=== PATIENT | female | born 1955 | race Caucasian/White ===

== ENCOUNTER 2018-03-17 20:16 | Outpatient (CLI) | payer MEDICAID | END 2018-03-17 20:17 | disposition critical access hospital (66) | LOC: EMS 20:16 | PROVIDERS: ATTEND Surgery | DX: R07.9 Chest pain, unspecified (principal); R10.9 Unspecified abdominal pain; R11.2 Nausea with vomiting, unspecified; R19.7 Diarrhea, unspecified | CPT/HCPCS: A0425; A0429; A0999 ==

== ENCOUNTER 2018-03-17 20:36 | Observation (INO) | payer MEDICAID ==
[2018-03-17] MEDS ORDERED: ONDANSETRON 4 MG/2 ML VIAL IVP STA (20:45)
[2018-03-17] MEDS ORDERED: SODIUM CHLORIDE 0.9% 1,000 ML IV ONE (20:45)
[2018-03-17 20:58] LABS: BASOPHILS % (AUTO) 0.4 %; EOSINOPHILS # (AUTO) 0.1 10^3/uL (0.0-0.7); EOSINOPHILS % (AUTO) 0.7 %; HGB - HEMOGLOBIN 13.7 g/dL (12.0-16.0); LYMPHOCYTES # (AUTO) 2.2 10^3/uL (1.5-3.5); LYMPHOCYTES % (AUTO) 26.5 %; MEAN CORPUSCULAR HEMOGLOBIN 31.6 pg (27.0-31.0); MEAN CORPUSCULAR HGB CONC 33.7 g/dL (32.0-36.0); MEAN CORPUSCULAR VOLUME 93.9 fL (81.0-99.0); MEAN PLATELET VOLUME 8.4 fL (7.9-10.8); MONOCYTES # (AUTO) 0.5 10^3/uL (0.0-1.0); NEUTROPHILS # (AUTO) 5.6 10^3/uL (1.5-6.6); NEUTROPHILS % (AUTO) 66.4 %; PLT - PLATELET COUNT 300 10^3/uL (130-450); RED BLOOD COUNT 4.33 10^6/uL (4.20-5.40); RED CELL DISTRIBUTION WIDTH 14.1 % (12.0-15.0); WHITE BLOOD COUNT 8.4 x10^3/uL (4.8-10.8)
[2018-03-17] MEDS ORDERED: LORazepam 2 MG/ML VIAL IVP STA (20:59)
[2018-03-17] MEDS ORDERED: FAMOTIDINE 20 MG in SODIUM CHLORIDE 0.9% 50 ML IV STA (21:09)
[2018-03-17 21:11] LABS: ALBUMIN 4.2 g/dL (3.2-5.5); ALBUMIN/GLOBULIN RATIO 1.3 (1.0-2.2); BILIRUBIN,TOTAL 1.1 mg/dL (0.2-1.0); CALCIUM 9.2 mg/dL (8.5-10.3); TOTAL PROTEIN 7.4 g/dL (6.7-8.2)
--- NOTE | 2018-03-17 21:12 | ED Physician Documentation ---
History of Present Illness - Stated complaint Stated Complaint: N/V/D - Chief complaint Chief Complaint: Abd Pain - History obtained from History obtained from: Patient - Additonal information Additional information: 62-year-old female presents the emergency department with generalized epigastric pain which is associated with multiple episodes of nausea and vomiting and one episode of loose stools. The patient's had multiple bouts of vomiting and now reports a burning that radiates up into her chest. The patient denies dyspnea on exertion, shortness of breath or recent URI symptoms. Symptoms are described as moderate. No other associated symptoms. No relieving factors. Review of Systems Constitutional: reports: Fatigue. denies: Fever, Chills Eyes: denies: Discharge Ears: denies: Ear pain Nose: denies: Congestion Throat: denies: Sore throat Cardiac: reports: Chest pain / pressure. 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 - Present Medications Home Medications: Ambulatory Orders Medication Instructions Recorded Confirmed diazePAM [Valium] 5 - 10 mg PO PRN 09/08/13 07/02/15 - Allergies Allergies/Adverse Reactions: Allergies Allergy/AdvReac Type Severity Reaction Status Date / Time morphine Allergy Intermediate Unknown Verified 07/02/15 13:17 - Social History Does the pt smoke?: No Smoking Status: Never smoker - POLST Patient has POLST: No PD ED PE NORMAL - General General: Alert and oriented X 3, Well developed/nourished - HEENT HEENT: Atraumatic, PERRL, EOMI, Ears normal, Moist mucous membranes - Neck Neck: Supple, no meningeal sign - Cardiac Cardiac: RRR, Strong equal pulses - Respiratory Respiratory: No respiratory distress, Clear bilaterally - Abdomen Abdomen: Soft, Non distended. No: Non tender (The patient has tenderness in the epigastrium, there is no Magallon sign, no rebound or peritoneal signs) - Derm Derm: Normal color - Extremities Extremities: No deformity, No edema - Neuro Neuro: Alert and oriented X 3, Normal speech - Psych Psych: Normal mood PD ED PE EXPANDED - General General: Anxious Results - Vitals Vitals: Vital Signs - 24 hr 03/17/18 03/17/18 03/17/18 20:40 21:28 21:35 Temperature 36.5 C Heart Rate 62 44 L Respiratory 22 16 Rate Blood Pressure 128/44 L 125/77 O2 Saturation 100 100 03/17/18 03/17/18 22:48 23:24 Temperature Heart Rate 48 L 63 Respiratory 18 18 Rate Blood Pressure 122/61 O2 Saturation 100 100 Oxygen O2 Source Room air - EKG (time done) 21: 04 Rate: Rate (enter#) Rhythm: NSR Intervals: Normal MA, QRS normal Ischemia: Non specific changes Other comments: Other comments (Sinus rhythm with nonspecific changes, there is no old EKG compared to) Compare to prior EKG: Unchanged from prior EKG 01:08 Rate: Rate (enter#) Rhythm: NSR Intervals: Normal MA, QRS normal Ischemia: Non specific changes Other comments: Other comments (Normal sinus rhythm, no acute ischemic changes) - Labs Labs: Laboratory Tests 03/17/18 03/17/18 03/17/18 20:52 20:52 20:52 WBC 8.4 RBC 4.33 Hgb 13.7 Hct 40.6 MCV 93.9 MCH 31.6 H MCHC 33.7 RDW 14.1 Plt Count 300 MPV 8.4 Neut # (Auto) 5.6 Lymph # (Auto) 2.2 [place] # (Auto) 0.5 Eos # (Auto) 0.1 Baso # (Auto) 0.0 Absolute Nucleated RBC 0.01 Nucleated RBC % 0.1 Sodium 135 Potassium 3.1 L Chloride 99 L Carbon Dioxide 16 L Anion Gap 20.0 H BUN 13 Creatinine 1.0 Estimated GFR (MDRD) 56 L Glucose 183 H Calcium 9.2 Magnesium 2.0 Total Bilirubin 1.1 H AST 39 ALT 16 Alkaline Phosphatase 85 Troponin I 0.06 Total Protein 7.4 Albumin 4.2 Globulin 3.2 Albumin/Globulin Ratio 1.3 Lipase 140 H 03/18/18 03/18/18 00:00 00:00 WBC RBC Hgb Hct MCV MCH MCHC RDW Plt Count MPV Neut # (Auto) Lymph # (Auto) [place] # (Auto) Eos # (Auto) Baso # (Auto) Absolute Nucleated RBC Nucleated RBC % Sodium 136 Potassium 3.4 L Chloride 104 Carbon Dioxide 20 L Anion Gap 12.0 BUN 12 Creatinine 0.8 Estimated GFR (MDRD) 72 L Glucose 143 H Calcium 8.4 L Magnesium Total Bilirubin AST ALT Alkaline Phosphatase Troponin I 0.11 Total Protein Albumin Globulin Albumin/Globulin Ratio Lipase 70 H - Rads (name of study) Chest Xray Radiology: Final report received (IMPRESSION: No acute intrathoracic plain film abnormality.) CT abdomen/pelvis Radiology: Final report received (IMPRESSION: 1. No acute inflammatory or obstructive process seen in the abdomen or pelvis. 2. Indeterminate scattered hepatic hypodense nodules measuring up to 2 cm on the left. Additional nearly 2 cm left adrenal nodule is also indeterminate. In the absence of known malignancy , favor benign nodules in both glands. MRI abdomen without and with contrast follow-up suggested to confirm benignity if they cannot be proven stable from older images) PD MEDICAL DECISION MAKING - ED course ED course: The patient has had ongoing symptoms, the patient's symptoms seem to be more consistent with a gastric etiology but on a repeat troponin the patient's enzyme level was slightly elevated, no acute EKG changes. The patient will require admission to the hospital for a full chest pain rule out. The findings and plan were discussed with the hospitalist Dr. Barton Who accepts the patient onto her service. The findings and plan were discussed the patient who understands and agrees to the plan - Sepsis Event Vital Signs: Vital Signs - 24 hr 03/17/18 03/17/18 03/17/18 20:40 21:28 21:35 Temperature 36.5 C Heart Rate 62 44 L Respiratory 22 16 Rate Blood Pressure 128/44 L 125/77 O2 Saturation 100 100 03/17/18 03/17/18 22:48 23:24 Temperature Heart Rate 48 L 63 Respiratory 18 18 Rate Blood Pressure 122/61 O2 Saturation 100 100 Oxygen O2 Source Room air Departure - Departure Disposition: ED Place in Observation Clinical Impression: Epigastric pain, Abnormal CT of the abdomen Chest pain Qualifiers: Chest pain type: unspecified Qualified Code(s): R07.9 - Chest pain, unspecified Vomiting Qualifiers: Vomiting type: unspecified Vomiting Intractability: non-intractable Nausea presence: with nausea Qualified Code(s): R11.2 - Nausea with vomiting, unspecified Condition: Good Discharge Date/Time: 03/18/18 02:07
[2018-03-17] MEDS ORDERED: POTASSIUM CHLORIDE 20 MEQ TABLET PO STA (21:33)
[2018-03-17] MEDS ORDERED: diphenhydrAMINE INJ 50 MG/ML VIAL IVP STA (22:33)
[2018-03-17] MEDS ORDERED: PROMETHAZINE INJ 25 MG in SODIUM CHLORIDE 0.9% 50 ML IV STA (22:33)
--- NOTE | 2018-03-17 22:55 | XRAY Report ---
Procedure Date: 03/17/2018 Accession Number: [id number] / [id number] Procedure: XR - Chest 2 View X-Ray CPT Code: 37246 FULL RESULT: EXAM: CHEST RADIOGRAPHY EXAM DATE: 03/17/2018 10:26 PM. CLINICAL HISTORY: Chest pain COMPARISON: None. TECHNIQUE: 2 views. FINDINGS: Lungs/Pleura: No focal opacities evident. No pleural effusion. No pneumothorax. Lungs are well expanded. Mediastinum: Heart and mediastinal contours are unremarkable. Other: None. IMPRESSION: No acute intrathoracic plain film abnormality. RADIA
[2018-03-18 00:18] LABS: CALCIUM 8.4 mg/dL (8.5-10.3); CREATININE 0.8 mg/dL (0.4-1.0)
[2018-03-18] MEDS ORDERED: ASPIRIN CHEW 81 MG TABLET PO STA (01:00)
[2018-03-18] MEDS ORDERED: fentaNYL 100 MCG/2 ML VIAL IVP STA (01:03)
[2018-03-18] MEDS ORDERED: PROCHLORPERAZINE 10 MG/2 ML VIAL IVP PRN (01:19)
[2018-03-18] MEDS ORDERED: oxyCODONE 5 MG TABLET PO PRN (01:19)
[2018-03-18] MEDS ORDERED: ACETAMINOPHEN 325 MG TABLET PO PRN (01:19)
[2018-03-18] MEDS ORDERED: ONDANSETRON ODT 4 MG TABLET TL PRN (01:19)
[2018-03-18] MEDS ORDERED: LORazepam 2 MG/ML VIAL IVP PRN (01:23)
[2018-03-18] MEDS ORDERED: IOPAMIDOL-300 100 ML VIAL ONE (01:27)
[2018-03-18 01:44] LABS: MUDS CUTOFF CONCENTRATIONS CUTOFF CONC BELOW:
--- NOTE | 2018-03-18 01:47 | HISTORY & PHYSICAL EXAMINATION ---
Chief Complaint - Chief Complaint Chief Complaint: nausea, epigastric pain History of Present Illness - Admitted From Admitted From:: ER/Home via EMS - History Obtained From Records Reviewed: [facility] History obtained from: Patient, ER MD and her friend Ms. Saavedra (most of it from Ms. Saavedra). Exam Limitations: patient's affect - History of Present Illness HPI Comment/Other: She presents w a complaint of nausea and vomitting today associated w epigastric pain. Sometimes radiates into her back or into her central chest. Sometimes sweaty w it, sometimes not. Pain is burning and comes a goes. When it lasts, it last for a few minutes. NO radiation to shoulder, no palpitations. No sob. She has no prior cardiac hx and denies angina, chf, arrhythmia. She denies orthopnea, pedal edema. She has no cardiac risk factors: no tobacco abuse, no HTN, no DM, no HPL. She did have an episode of diarrhea with her nausea. Liquid , brown, no blood. Maybe some abd pain she is not sure. Every time she tries to get up she gets dizzy but denies MARTIN, blurred vision, focal deficit, dysesthesia. She is a poor historian. 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 Martin has some type of cognitive dysfunction. Everyone in the neighborhood will say "that's our crazy Maria Ines." She has been on the autism spectrum all of her life. Uzma Saavedra is her neighbor and friend. They have known each other since Ms. Martin was 9 years old. What we are observing in the ER with her erratic conversation with off center responses is par for the course for her. In the ER she was hyperventilating but calmed with meds. She had a nml exam except for affect. AG, hypokalemia, and elevated lipase were noted. She received IVF and labs were better. But her initial troponin of <0.06 went to 0.1 on the second check. ER MD is wishing placment for observation for the epigastric pain to make sure there is no ischemia and she is getting a CT of the abd as I write this note. 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 ) Musculoskeletal: reports: Osteoarthritis Derm: reports: None MRSA Hx?: No - Past Surgical History /HOSE MAKER: reports: Other - Family & Social History Family History Comment/Other: Her mom >25 years ago according to Ms. Saavedra but the patient tells me mom is alive and she's just not in contact w her. Dad is unknown. 1 sister is alive in [place] and healthy as far as Ms. Saavedra knows. 1 half brother 3 years ago of unkown causes. Her 4 children all have different fathers and they are not in her life. Living arrangement: At home Living Situation: Alone Social History Notes: She smoked a few cigarettes in her youth but was never a regular tobacco smoker. She denies hx of alcohol abuse and Ms. Saavedra confirms that. She does live in her own home and pays her bills, takes care of her own personal needs. She knows how to drive but doesn't have a car. Never . 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 - Substance History Use: Uses substance without health or social issues: NONE Abuse: Recurrent use of substance despite neg consequences: NONE Dependence: Experiences withdrawal or developed tolerances: NONE - POLST Patient has POLST: No POLST Status: Full Code Meds/Allgy - Home Medications Home Medications: Ambulatory Orders Medication Instructions Recorded Confirmed diazePAM [Valium] 5 - 10 mg PO PRN 09/08/13 07/02/15 - Allergies Allergies/Adverse Reactions: Allergies Allergy/AdvReac Type Severity Reaction Status Date / Time morphine Allergy Intermediate Unknown Verified 07/02/15 13:17 Review of Systems - Constitutional Constitutional: denies: Fatigue, Fever, Chills, Malaise - Eyes Eyes: denies: Pain, Irritation, Amaurosis, Field loss - Ears, Nose & Throat Ears, Nose & Throat: denies: Ear pain, Hearing loss, Hearing aids, Nasal obstruction, Nasal congestion, Postnasal drainage, Sore throat - Cardiovascular Cariovascular: reports: Chest pain, Lightheadedness. denies: Irregular heart rate, Palpitations, Edema, Syncope, Exertional dyspnea, Decr. exercise tolerance - Respiratory Respiratory: denies: Cough, Sputum production, Wheezing, Snoring, Orthopnea, SOB at rest - Gastrointestinal Gastrointestinal: reports: Abdominal pain, Diarrhea, Nausea, Vomiting. denies: Abdominal distention, Constipation, Change in bowel habits, Rectal bleeding, Black stools, Bloody stools, Bile emesis, Dipak blood emesis - Genitourinary Genitourinary: denies: Dysuria, Frequency, Urgency, Hematuria - Musculoskeletal Musculoskeletal: denies: Muscle pain, Back pain, Muscle aches, Stiffness, Gout, Joint pain - Integumentary Integumentary: denies: Rash, Pruritis, Lesions - Neurological Neurological: reports: Headache, Dizziness, Pre-existing deficit. denies: General weakness, Focal weakness, Numbness, Memory problems, Abnormal gait, Seizures, Incoordination, Slurred speech - Psychiatric Psychiatric: reports: Depression, Anxiety. denies: Suicidal, Delusions, Hallucinations - Endocrine Endocrine: denies: Polyuria, Polydypsia, Polyphagia - Hematologic/Lymphatic Hematologic/Lymphatic: denies: Anemia, Bruising, Petechiae - All Other Systems All Other Systems: reports: Other (This ROS was very difficult to obtain. She is erractic. Alternates between being lucid, answering questions, to curling onto her side, closing her eyes , and taking over 45 seconds to answer a simple question because she's thinking. Sometimes the answers are nonsensical. Ms. Saavedra says that is Ms. Martin's baseline.) Exam - Vital Signs Reviewed Vital Signs: Yes Vital Signs: Vital Signs x48h Temp Pulse Resp BP Pulse Ox 03/18/18 01:20 59 L 16 132/70 H 97 03/17/18 23:24 63 18 100 03/17/18 22:48 48 L 18 122/61 100 03/17/18 21:35 125/77 03/17/18 21:28 44 L 16 100 03/17/18 20:40 36.5 C 62 22 128/44 L 100 - Physical Exam General Appearance: positive: No acute distress, Other (tall, lanky, elderly white female who looks older than stated age.) Eyes Bilateral: positive: PERRL, EOMI ENT: positive: Dry mucous membranes Neck: positive: No JVD. negative: Stiff neck, Carotid bruit Respiratory: positive: Chest non-tender. negative: Wheezes, Rales, Rhonchi Cardiovascular: positive: Regular rate & rhythm, Decreased pulse(s). negative: Systolic murmur, Gallop/S4, Friction rub Peripheral Pulses: positive: 1+ Abdomen: positive: Tenderness (in the epigastrium). negative: No organomegaly, Nml bowel sounds, No distention, Guarding, Rebound Skin: negative: Warm, Dry Extremities: positive: Non-tender, Full ROM. negative: Pedal edema Neurologic/Psychiatric: positive: Oriented x3, CN's nml (2-12), Motor nml. negative: Mood/affect nml, Weakness, Facial droop, Slurred/abnml speech Conclusion/Plan - Problem List (1) Epigastric pain Conclusion/Plan: I think she describes sudden in onset, but no relation to food. (+) emesis and ( +) nausea with some elements of chest pain. Plan: place in OBV serial cardiac enzymes Stress test tomorrow if nuc med is available bc there is an elevated amylase and element of abd pain, will fu on CT ordered in ER. (2) Labile personality Conclusion/Plan: with unknown personality disorder? Ms Saavedra states the Ms. Martin is seen at [facility] regularly. Will see if they will speak to us in am to give use her DSM diagnosis. I have ordered a toxicology screen to make sure that the labile change is not due to medication. Will also call Dr. Ortega's office in the am, but she states "I hate that man" but can't tell me why or when the last time she was seen. (3) High anion gap metabolic acidosis Conclusion/Plan: seen on initial BMP when she was hyperventilating. Resolved after ativan and IVF. Will check tox screen and BMP in am. (4) Hypokalemia Conclusion/Plan: from emesis? Plan is to supplement IV for the evening . - Lab Results Fish Bones: 03/17/18 20:52 03/18/18 00:00 - EKG Results EKG Interpreted Independently: No EKG Comparison: Other (tele in ER demonstrates sinus, sinus arrhythmia, bradycardia to 40's .) Core Measures - Anticipated LOS I expect patient to be DC'd or transferred within 96 hours.: Yes - DVT/VTE - Prophylaxis VTE/DVT Device ordered at admit?: Yes
[2018-03-18 01:52] LABS: BILIRUBIN,URINE NEGATIVE (NEGATIVE); GLUCOSE, URINE (UA) NEGATIVE (NEGATIVE); KETONES,URINE (UA) >=80 mg/dL (NEGATIVE); LEUKOCYTE ESTERASE, URINE NEGATIVE (NEGATIVE); NITRITE,URINE NEGATIVE (NEGATIVE); OCCULT BLOOD,URINE NEGATIVE (NEGATIVE); PH,URINE 6.5 PH (5.0-7.5); PROTEIN,URINE NEGATIVE (NEGATIVE); UROBILINOGEN,URINE 0.2 (NORMAL) E.U./dL (NORMAL)
[2018-03-18] MEDS ORDERED: IOPAMIDOL-300 100 ML VIAL IVP ONE (01:55)
[2018-03-18 02:03] LABS: AMPHETAMINE SCREEN,URINE NEGATIVE (NEGATIVE); BENZODIAZEPINES SCREEN, URINE POSITIVE (NEGATIVE); CLARITY,URINE CLEAR (CLEAR); COCAINE SCREEN URINE NEGATIVE (NEGATIVE); METHADONE SCREEN, URINE NEGATIVE (NEGATIVE); METHAMPHETAMINES SCREEN, URINE NEGATIVE (NEGATIVE); OPIATE SCREEN, URINE NEGATIVE (NEGATIVE); OXYCODONE SCREEN, URINE NEGATIVE (NEGATIVE); PROPOXYPHENE SCREEN, URINE NEGATIVE (NEGATIVE); TRICYCLIC ANTIDEPRESSANT,URINE NEGATIVE (NEGATIVE)
--- NOTE | 2018-03-18 02:26 | CT Report ---
Procedure Date: 03/18/2018 Accession Number: [id number] / [id number] Procedure: CT - Abdomen/Pelvis W/ CPT Code: FULL RESULT: EXAM: CT ABDOMEN AND PELVIS EXAM DATE: 03/18/2018 01:53 AM. CLINICAL HISTORY: Epigastric pain. COMPARISONS: None. TECHNIQUE: Routine helical CT imaging was performed through the abdomen and pelvis. IV contrast: Yes. Enteric contrast: No. Reconstructions: Coronal and sagittal. In accordance with CT protocol optimization, one or more of the following dose reduction techniques were utilized for this exam: automated exposure control, adjustment of mA and/or KV based on patient size, or use of iterative reconstructive technique. FINDINGS: Lung Bases: Unremarkable with incidental 2 mm right lower lobe nodular focus, statistically a scar. Liver: Indeterminate hypodense nodules measuring up to 20 x 21 mm in lateral segment left liver on axial image 23. Additional smaller medial segment left liver nodule on the same image and smaller 10 mm nodule at the hepatic dome on image 12. No vascular thrombosis seen. Gallbladder/Bile Ducts: Unremarkable. Spleen: Unremarkable. Pancreas: Unremarkable. Adrenal Glands: Solid indeterminate 18 mm left adrenal nodule. No right adrenal mass seen. Kidneys: Unremarkable. No suspicious masses or hydronephrosis. Peritoneal Cavity/Bowel: No bowel obstruction or inflammatory process seen. No free air or significant free fluid. No masses or adenopathy. The appendix is normal. No excessive stool burden. Pelvic Organs: Bladder, uterus, and adnexa appear unremarkable. Vasculature: No aneurysms or other significant abnormality. Bones: No significant abnormality. Other: None. IMPRESSION: 1. No acute inflammatory or obstructive process seen in the abdomen or pelvis. 2. Indeterminate scattered hepatic hypodense nodules measuring up to 2 cm on the left. Additional nearly 2 cm left adrenal nodule is also indeterminate. In the absence of known malignancy, favor benign nodules in both glands. MRI abdomen without and with contrast follow-up suggested to confirm benignity if they cannot be proven stable from older images. RADIA
[2018-03-18] MEDS: ONDANSETRON 4 MG/2 ML VIAL IVP PRN ×2 (02:29→12:25)
[2018-03-18] MEDS: SODIUM CHLORIDE FLUSH 0.9% 10 ML SYRINGE IVP PRN ×3 (02:29→12:25)
[2018-03-18] MEDS: POTASSIUM CHLOR 10 MEQ/100 ML 10 MEQ/100 ML BAG IV SCH ×2 (02:49→03:58)
[2018-03-18 06:36] LABS: CALCIUM 8.7 mg/dL (8.5-10.3); CREATININE 0.7 mg/dL (0.4-1.0)
[2018-03-18] MEDS ORDERED: POLYETHYLENE GLYCOL 3350 17 GM PACKET PO SCH (09:00)
[2018-03-18] MEDS ORDERED: SODIUM CHLORIDE FLUSH 0.9% 10 ML SYRINGE IVP SCH (09:00)
[2018-03-18] MEDS ORDERED: REGADENOSON 0.4 MG/5 ML SYRINGE IVP ONE ×2 (10:50→11:59)
--- NOTE | 2018-03-18 12:28 | MISCELLANEOUS PROVIDER NOTE ---
Miscellaneous Provider Note - - Note: Stress test was performed. During resting phase of stress test patient did develop some chest discomfort similar to when she presented. She stated it was not as severe. She became tachypnic and stated she could feel her heart racing. She felt like she needed to eat something. During this time that patient have very mild ST depression in the anterior leads. We will get another troponin and await results of Echo and Nuclear portion of the test.
--- NOTE | 2018-03-18 14:23 | Nuclear Medicine Report ---
Procedure Date: 03/18/2018 Accession Number: [id number] / [id number] Procedure: NM - Myocardial Perfusion STR/RST CPT Code: FULL RESULT: EXAM: SINGLE-ISOTOPE PHARMACOLOGICAL STRESS TEST WITH REGADENOSON. SINGLE-ISOTOPE AND ONE-DAY REST/STRESS MYOCARDIAL PERFUSION SCANS WITH TOMOGRAPHIC IMAGING, QUANTITATIVE ANALYSIS, WALL MOTION ANALYSIS AND CALCULATION OF EJECTION FRACTION. EXAM DATE: 03/18/2018 01:53 PM. CLINICAL HISTORY: Elevated troponin COMPARISON: None available. TECHNIQUE: After the intravenous administration of 10.4 mCi of Tc-99m sestamibi, a rest myocardial perfusion scan was done with tomography. Motion correction was applied when appropriate. After an appropriate delay, pharmacological stress was performed with the infusion of 0.4 mg regadenoson per protocol. According to protocol, 43.7 mCi of Tc-99m sestamibi was injected for stress myocardial perfusion scan. Motion correction was applied when appropriate. Gated tomographic images were obtained for wall motion analysis and computation of left ventricular ejection fraction. ECG findings are reported separately FINDINGS: There is mildly decreased activity in the anteroseptal wall, greater on the rest images compared to the stress images, pattern most consistent with breast attenuation artifact. There is a mild fixed inferolateral wall defect. No convincing reversible perfusion defects. Computer analysis: Summed stress score 3 Summed rest score 0 Summed difference score 3 Wall motion analysis demonstrates no focal wall motion abnormality. The left ventricular end-diastolic volume is 66 cc. The left ventricular end-systolic volume is 5 cc. The left ventricular ejection fraction is calculated to be 93%. IMPRESSION: 1. Mild fixed inferolateral wall perfusion defect. No convincing reversible perfusion defects. 2. Left ventricular ejection fraction of 93%. This is presumably an overestimate. 3. Normal segmental and global wall motion. 4. Normal left ventricular cavity size, no change with stress. 5. Based on computer analysis, normal exam with mild ischemia. RADIA
--- NOTE | 2018-03-18 16:22 | Discharge Plan ---
Discharge Plan Disposition: 01 Home, Self Care Condition: Good Prescriptions: Ondansetron [Zofran Odt] 8 mg PO Q8HR #20 tab.rapdis Shower Restrictions: No Driving Restrictions: No Weight Bearing: Full Weight Additional Instructions or Follow Up instructions: You presented to the emergency department with nausea, vomiting and abdominal pain that went up into your chest area. We were concerned about possibility of a heart attack therefore we performed a stress test, serial blood tests and monitored you overnight. We also performed an echocardiogram. All of the above testing was negative for any acute heart attack. Your cardiac function is well preserved. Most likely your symptoms were due to a viral stomach bug. I have prescribed you some Zofran which you can take for nausea. I also would recommend that you drink plenty of fluid and get plenty of rest over the next few days as I expect that this will resolve. You did have a finding of some abnormal nodules on your CT scan that looked to be benign. You should follow- up on these with your primary care physician as you may need to get an MRI for further evaluation. No Smoking: If you smoke, Please STOP! Call for help. Follow-up with: Carlos Ortega MD [Credentialed Staff Provider] -
--- NOTE | 2018-03-18 16:36 | DISCHARGE SUMMARY ---
Discharge Summary Admit Date: 03/18/18 Discharge Date: 03/18/18 Discharging Provider: Paul Sotelo MD Primary Care Provider: Carlos Ortega MD Code Status: Attempt Resuscitation Condition at Discharge: Good Discharge Disposition: 01 Home, Self Care - DIAGNOSES Admission Diagnoses: 1. Epigastric pain 2. Labile personality 3. High anion gap metabolic acidosis 4. Hypokalemia Discharge Diagnoses with Status of Each Condition: 1. Chest pain: Stable 2. Epigastric pain: Stable 3. Labile personality: Stable 4. High anion gap metabolic acidosis: Improving 4. Hypokalemia: Resolved - HPI History of Present Illness: She presents w a complaint of nausea and vomitting today associated w epigastric pain. Sometimes radiates into her back or into her central chest. Sometimes sweaty w it, sometimes not. Pain is burning and comes a goes. When it lasts, it last for a few minutes. NO radiation to shoulder, no palpitations. No sob. She has no prior cardiac hx and denies angina, chf, arrhythmia. She denies orthopnea, pedal edema. She has no cardiac risk factors: no tobacco abuse, no HTN, no DM, no HPL. She did have an episode of diarrhea with her nausea. Liquid , brown, no blood. Maybe some abd pain she is not sure. Every time she tries to get up she gets dizzy but denies MARTIN, blurred vision, focal deficit, dysesthesia. She is a poor historian. 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 Martin has some type of cognitive dysfunction. Everyone in the neighborhood will say "that's our crazy Maria Ines." She has been on the autism spectrum all of her life. Uzma Saavedra is her neighbor and friend. They have known each other since Ms. Martin was 9 years old. What we are observing in the ER with her erratic conversation with off center responses is par for the course for her. In the ER she was hyperventilating but calmed with meds. She had a nml exam except for affect. AG, hypokalemia, and elevated lipase were noted. She received IVF and labs were better. But her initial troponin of <0.06 went to 0.1 on the second check. ER MD is wishing placment for observation for the epigastric pain to make sure there is no ischemia and she is getting a CT of the abd as I write this note. - CONSULTS | PROCEDURES Consultations: Cardiology [facility]: Dr Marin Procedures: Dr. Lau stated that the patient's troponins were indeterminate and in this range it is best to risk stratify with an echocardiogram and a stress test. - HOSPITAL COURSE Hospital Course: Patient was placed in observation for rule out of acute coronary syndrome given her indeterminate troponin and vague chest pain. During the hospitalization the patient had serial troponins which peaked at 0.21 and were trending down at the time of discharge. When the troponin did peak to 0.[address] Marin career technical supervisor at [facility] in [place] and he stated that the patient needed risk stratification in the setting of having an indeterminate troponin and there was no need for transfer. He advised an echocardiogram and a cardiac stress test. The patient underwent a myocardial perfusion scan which revealed a mild fixed inferolateral wall perfusion defect. No convincing reversible perfusion defects. Normal segmental and global wall motion. Normal left ventricular cavity size, no change with stress. Based on the computer analysis this was a normal exam with mild ischemia. During the exam the patient did have some mild chest pain and very minimal ST depressions on EKG in the anterior leads. Given that the patient had no reversible defects seen on the myocardial perfusion imaging no further intervention was warranted. Patient also underwent echocardiogram which showed normal EF and no wall motion abnormalities. Of note the patient did undergo a CT of her abdomen and pelvis which did not reveal any acute intra-abdominal process. However there were indeterminate scattered hepatic hypodense nodules measuring up to 2 cm on the left and nearly 2 cm left adrenal nodule which was also indeterminate. The radiologist did recommend follow-up with an MRI in the future. The patient's overall symptoms seem to improve with antiemetics. The patient was prescribed Zofran at discharge. The patient was also instructed to follow-up with her primary care physician to follow-up on the nodules in her liver and adrenal. The patient was in stable condition at the time of discharge. - ALLERGIES Allergies/Adverse Reactions: Allergies Allergy/AdvReac Type Severity Reaction Status Date / Time morphine Allergy Intermediate Unknown Verified 07/02/15 13:17 - MEDICATIONS Home Medications: Ambulatory Orders Medication Instructions Recorded Confirmed diazePAM [Valium] 5 - 10 mg PO DAILY PRN 09/08/13 03/18/18 Ondansetron [Zofran Odt] 8 mg PO Q8HR #20 tab.rapdis 03/18/18 - PHYSICAL EXAM AT DISCHARGE General Appearance: positive: No acute distress, Alert Eyes Bilateral: positive: Normal inspection, PERRL, EOMI, No lid inflammation, Conjunctivae nml, No scleral icterus ENT: positive: ENT inspection nml, Pharynx nml, No signs of dehydration. negative: Purulent nasal drainage, Pharyngeal erythema, Oral lesions Neck: positive: Nml inspection, Thyroid nml, No JVD, Trachea midline. negative : Lymphadenopathy (R), Lymphadenopathy (L), Stiff neck, Carotid bruit, Tracheal deviation Respiratory: positive: Chest non-tender, No respiratory distress, Breath sounds nml. negative: Wheezes, Rales, Rhonchi Cardiovascular: positive: Regular rate & rhythm, No murmur, No gallop Peripheral Pulses: positive: 2+ Abdomen: positive: Non-tender, No organomegaly, Nml bowel sounds, No distention. negative: Guarding, Rebound, Hepatomegaly, Splenomegaly Back: positive: Nml inspection. negative: CVA tenderness (R), CVA tenderness (L ) Skin: positive: Color nml, No rash, Warm. negative: Diaphoresis, Pallor, Skin rash Extremities: positive: Non-tender, Full ROM, Nml appearance, No pedal edema Neurologic/Psychiatric: positive: Oriented x3, CN's nml (2-12), Motor nml, Sensation nml, Mood/affect nml - LABS Result Diagrams: 03/17/18 20:52 03/18/18 06:19 Other Lab Results: Laboratory Results WBC 8.4 x10^3/uL (4.8-10.8) 03/17/18 20:52 RBC 4.33 10^6/uL (4.20-5.40) 03/17/18 20:52 Hgb 13.7 g/dL (12.0-16.0) 03/17/18 20:52 Hct 40.6 % (37.0-47.0) 03/17/18 20:52 MCV 93.9 fL (81.0-99.0) 03/17/18 20:52 MCH 31.6 pg (27.0-31.0) H 03/17/18 20:52 MCHC 33.7 g/dL (32.0-36.0) 03/17/18 20:52 RDW 14.1 % (12.0-15.0) 03/17/18 20:52 Plt Count 300 10^3/uL (130-450) 03/17/18 20:52 MPV 8.4 fL (7.9-10.8) 03/17/18 20:52 Neut # (Auto) 5.6 10^3/uL (1.5-6.6) 03/17/18 20:52 Lymph # (Auto) 2.2 10^3/uL (1.5-3.5) 03/17/18 20:52 [place] # (Auto) 0.5 10^3/uL (0.0-1.0) 03/17/18 20:52 Eos # (Auto) 0.1 10^3/uL (0.0-0.7) 03/17/18 20:52 Baso # (Auto) 0.0 10^3/uL (0.0-0.1) 03/17/18 20:52 Absolute Nucleated RBC 0.01 x10^3/uL 03/17/18 20:52 Nucleated RBC % 0.1 /100WBC 03/17/18 20:52 Sodium 136 mmol/L (135-145) 03/18/18 06:19 Potassium 4.1 mmol/L (3.5-5.0) 03/18/18 06:19 Chloride 105 mmol/L (101-111) 03/18/18 06:19 Carbon Dioxide 20 mmol/L (21-32) L 03/18/18 06:19 Anion Gap 11.0 (6-13) 03/18/18 06:19 BUN 9 mg/dL (6-20) 03/18/18 06:19 Creatinine 0.7 mg/dL (0.4-1.0) 03/18/18 06:19 Estimated GFR (MDRD) 85 (>89) L 03/18/18 06:19 Glucose 136 mg/dL (70-100) H 03/18/18 06:19 Calcium 8.7 mg/dL (8.5-10.3) 03/18/18 06:19 Magnesium 2.0 mg/dL (1.7-2.8) 03/17/18 20:52 Total Bilirubin 1.1 mg/dL (0.2-1.0) H 03/17/18 20:52 AST 39 IU/L (10-42) 03/17/18 20:52 ALT 16 IU/L (10-60) 03/17/18 20:52 Alkaline Phosphatase 85 IU/L (42-121) 03/17/18 20:52 Troponin I 0.20 ng/mL (<0.49) 03/18/18 12:36 Total Protein 7.4 g/dL (6.7-8.2) 03/17/18 20:52 Albumin 4.2 g/dL (3.2-5.5) 03/17/18 20:52 Globulin 3.2 g/dL (2.1-4.2) 03/17/18 20:52 Albumin/Globulin Ratio 1.3 (1.0-2.2) 03/17/18 20:52 Lipase 70 U/L (22-51) H 03/18/18 00:00 Urine Color YELLOW 03/18/18 01:35 Urine Clarity CLEAR (CLEAR) 03/18/18 01:35 Urine pH 6.5 PH (5.0-7.5) 03/18/18 01:35 Ur Specific [place] 1.020 (1.002-1.030) 03/18/18 01:35 Urine Protein NEGATIVE mg/dL (NEGATIVE) 03/18/18 01:35 Urine Glucose (UA) NEGATIVE mg/dL (NEGATIVE) 03/18/18 01:35 Urine Ketones >=80 mg/dL (NEGATIVE) H 03/18/18 01:35 Urine Occult Blood NEGATIVE (NEGATIVE) 03/18/18 01:35 Urine Nitrite NEGATIVE (NEGATIVE) 03/18/18 01:35 Urine Bilirubin NEGATIVE (NEGATIVE) 03/18/18 01:35 Urine Urobilinogen 0.2 (NORMAL) E.U./dL (NORMAL) 03/18/18 01:35 Ur Leukocyte Esterase NEGATIVE (NEGATIVE) 03/18/18 01:35 Ur Microscopic Review NOT INDICATED 03/18/18 01:35 Urine Culture Comments NOT INDICATED 03/18/18 01:35 Urine Opiates Screen NEGATIVE (NEGATIVE) 03/18/18 01:35 Ur Oxycodone Screen NEGATIVE (NEGATIVE) 03/18/18 01:35 Urine Methadone Screen NEGATIVE (NEGATIVE) 03/18/18 01:35 Ur Propoxyphene Screen NEGATIVE (NEGATIVE) 03/18/18 01:35 Ur Barbiturates Screen NEGATIVE (NEGATIVE) 03/18/18 01:35 Ur Tricyclics Screen NEGATIVE (NEGATIVE) 03/18/18 01:35 Ur Phencyclidine Scrn NEGATIVE (NEGATIVE) 03/18/18 01:35 Ur Amphetamine Screen NEGATIVE (NEGATIVE) 03/18/18 01:35 U Methamphetamines Scrn NEGATIVE (NEGATIVE) 03/18/18 01:35 U Benzodiazepines Scrn POSITIVE (NEGATIVE) H 03/18/18 01:35 Urine Cocaine Screen NEGATIVE (NEGATIVE) 03/18/18 01:35 U Cannabinoids Screen POSITIVE (NEGATIVE) H 03/18/18 01:35 - DIAGNOSTIC IMAGING Diagnostic Imaging Results: Final report reviewed Diagnostic Imaging Results Comments: CT abdomen/pelvis Impression: 1. No acute inflammatory or obstructive process seen in the abdomen or pelvis. 2. Indeterminate scattered hepatic hypodense nodules measuring up to 2 cm on the left. Additionally nearly 2 cm left adrenal nodule is also indeterminate. In the absence of known malignancy, favor benign nodules in both glands. MRI abdomen without and with contrast follow-up suggested to confirm that these are benign if they cannot be proven stable from older images. Chest x-ray Impression: No acute intrathoracic plain film abnormality. Myocardial perfusion scan nuclear medicine Impression: 1. Mild fixed inferolateral wall perfusion defect. No convincing reversible perfusion defects. 2. Left ventricular ejection fraction of 93%. This is presumably an overestimate 3. Normal segmental and global wall motion. 4. Normal left ventricular cavity size, no change with stress. 5. Based on computer analysis, normal exam withmild ischemia Echocardiogram Preliminarily according to the tech there was no wall motion abnormalities and ejection fraction was normal. - FOLLOW UP Follow Up: Patient presented with nausea, chest pain and and abdominal pain. She was worked up and found to have an indeterminate troponin. She was held in observation and troponin peaked to 0.21. She underwent risk stratification with a stress test and echocardiogram. There was mild ischemia with reversible perfusion defects on the stress test. Echocardiogram showed a normal ejection fraction and no wall motion abnormalities. The patient did not appear to be having acute coronary syndrome and did not warrant any further evaluation. The patient was discharged home in stable condition. She was given Zofran at discharge for her nausea. The patient will need to follow-up with her primary care physician as CT scan done in the emergency department of the abdomen did show nodules in her liver as well as in her left adrenal gland. These need to be followed up with an MRI. - TIME SPENT Time Spent in Discharge (Minutes): 40
[2018-03-18 16:37] VITALS: BP 94/64
== END 2018-03-18 16:57 | disposition home or self-care (01) ==
LOC: EDUNIT# → ED 20:36 → MS3 03-18 01:19
PROVIDERS: ADMIT Specialist; ATTEND Internal Medicine
DX: R07.9 Chest pain, unspecified (principal); R10.13 Epigastric pain; F60.3 Borderline personality disorder; E87.2 Acidosis; E87.6 Hypokalemia; F84.0 Autistic disorder; F32.9 Major depressive disorder, single episode, unspecified; F41.0 Panic disorder [episodic paroxysmal anxiety]; R93.2 Abnormal findings on diagnostic imaging of liver and biliary tract; E27.9 Disorder of adrenal gland, unspecified; M19.90 Unspecified osteoarthritis, unspecified site; R79.89 Other specified abnormal findings of blood chemistry; Z87.891 Personal history of nicotine dependence; Z79.899 Other long term (current) drug therapy
CPT/HCPCS: 36415; 71046; 74177; 78452; 80048; 80053; 80306; 81003; 83690; 83735; 84484; 85025; 93005; 93017; 93306; 96361; 96365; 96366; 96367; 96375; 96376; 99284; A9270; A9500; G0378; J1200; J2060; J2785; J7040; Q9967; 81001; 87086